=== PATIENT | female | born 1985 | race Caucasian/White ===

== ENCOUNTER → 2022-05-16 06:55 | Outpatient (CLI) | payer OTHER, SELFPAY ==
[2022-05-16 08:05] LABS: Add Manual Diff / Slide Review NO; Basophils Absolute Auto 100 /uL (0-100); Basophils Percent Auto 0.6 % (0-2); Eosinophils Absolute Auto 100 /uL (0-450); Eosinophils Percent Auto 0.9 % (2-4); Lymphocytes Absolute Auto 3400 /uL (1100-4500); Lymphocytes Percent Auto 33.3 % (25-40); Mean Corpuscular HGB Conc 33.4 % (30-36); Mean Corpuscular Hemoglobin 30.1 PG (26-34); Mean Corpuscular Volume 90.1 fL (80-100); Monocytes Absolute Auto 600 /uL (0-900); Monocytes Percent Auto 6.3 % (3-14); Neutrophils Absolute Auto 6100 /uL (1500-7000); Neutrophils Percent Auto 58.9 % (50-75); Platelet Count 327 X10^3/uL (150-400); Red Blood Cell Count 4.66 X10^6/uL (4.0-5.2); Red Cell Distribution Width 12.8 % (11.6-14.8); White Blood Cell Count 10.3 X10^3/uL (4.5-11.0)
[2022-05-16 08:16] LABS: Alanine Aminotransferase 48 IU/L (<35); Albumin 4.4 g/dL (3.5-5.0); Albumin Globulin Ratio 1.2 (1.0-2.8); Alkaline Phosphatase 69 U/L (38-126); Aspartate Aminotransferase 32 IU/L (14-36); BUN Creatinine Ratio 21.3 (6-22); Bilirubin Total 0.3 mg/dL (0.2-1.3); Blood Urea Nitrogen 13 mg/dL (7-17); Carbon Dioxide 27 mmol/L (22-32); Chloride 103 mmol/L (98-107); Cholesterol 170 mg/dL (140-199); Estimated Glomerular Filt Rate > 60 mL/min (>60); Globulin 3.7 g/dL (1.7-4.1); Glucose 96 mg/dL (70-100); HDL Cholesterol 38 mg/dL (40-60); HEMOLYSIS < 15 (0-50); LDL Cholesterol Calculated 106 mg/dL (<100); Potassium 3.8 mmol/L (3.4-5.1); Sodium 141 mmol/L (137-145); Total Protein 8.1 g/dL (6.3-8.2); Triglycerides 131 mg/dL (35-150)
[2022-05-17 06:04] LABS: Labcorp Hemoglobin (Hb) A1c 5.3 % (4.8-5.6)
[2022-05-29 16:44] LABS: Percent Free Testosterone 1.47 % (0.50-2.80); Testosterone Free 0.76 ng/dL (0.10-0.85)
== END ==
PROVIDERS: PCP Family Medicine; Referring Provider Family Medicine; Visit Provider Family Medicine
DX: E28.2 Polycystic ovarian syndrome (principal); N91.2 Amenorrhea, unspecified; R41.840 Attention and concentration deficit; Z68.30 Body mass index [BMI] 30.0-30.9, adult
CPT/HCPCS: 36415; 80053; 80061; 83036; 83498; 84402; 84403; 84443; 85025

== ENCOUNTER → 2022-08-05 07:02 | Outpatient (CLI) | payer OTHER, SELFPAY ==
[2022-08-05 09:46] LABS: Free T3, Triiodothyronine Free 4.86 pg/mL (2.77-5.27); Free T4, Direct Thyroxine 1.01 ng/dL (0.78-2.19)
[2022-08-06 07:10] LABS: Thyroid Peroxidase Antibodies 10 IU/mL (0-34)
== END ==
PROVIDERS: Specialist; PCP Family Medicine; Referring Provider Naturopath; Visit Provider Naturopath
DX: R53.82 Chronic fatigue, unspecified (principal); N91.4 Secondary oligomenorrhea
CPT/HCPCS: 36415; 84144; 84439; 84443; 84481; 86376

== ENCOUNTER → 2023-07-02 06:58 | Outpatient (CLI) | payer OTHER, SELFPAY ==
[2023-07-02 08:31] LABS: Add Manual Diff / Slide Review NO; Basophils Absolute Auto 100 /uL (0-100); Basophils Percent Auto 0.7 % (0-2); Eosinophils Absolute Auto 100 /uL (0-450); Eosinophils Percent Auto 1.1 % (2-4); Hematocrit 43.9 % (36-46); Hemoglobin 14.8 g/dL (12.0-16.0); Lymphocytes Absolute Auto 3700 /uL (1100-4500); Lymphocytes Percent Auto 35.4 % (25-40); Mean Corpuscular HGB Conc 33.8 % (30-36); Mean Corpuscular Hemoglobin 30.9 PG (26-34); Mean Corpuscular Volume 91.7 fL (80-100); Monocytes Absolute Auto 600 /uL (0-900); Monocytes Percent Auto 6.1 % (3-14); Neutrophils Absolute Auto 6000 /uL (1500-7000); Neutrophils Percent Auto 56.7 % (50-75); Platelet Count 311 X10^3/uL (150-400); Red Blood Cell Count 4.79 X10^6/uL (4.0-5.2); Red Cell Distribution Width 12.9 % (11.6-14.8); White Blood Cell Count 10.6 X10^3/uL (4.5-11.0)
[2023-07-02 08:50] LABS: Alanine Aminotransferase 38 IU/L (<35); Albumin 4.8 g/dL (3.5-5.0); Albumin Globulin Ratio 1.5 (1.0-2.8); Alkaline Phosphatase 76 U/L (38-126); Aspartate Aminotransferase 30 IU/L (14-36); BUN Creatinine Ratio 17.4 (6-22); Bilirubin Total 0.8 mg/dL (0.2-1.3); Blood Urea Nitrogen 12 mg/dL (7-17); Calcium 9.7 mg/dL (8.4-10.2); Carbon Dioxide 29 mmol/L (22-32); Chloride 105 mmol/L (98-107); Estimated Glomerular Filt Rate > 60 mL/min (>60); Globulin 3.1 g/dL (1.7-4.1); Glucose 87 mg/dL (70-100); HEMOLYSIS < 15 (0-50); Potassium 4.9 mmol/L (3.4-5.1); Sodium 142 mmol/L (137-145); Total Protein 7.9 g/dL (6.3-8.2)
[2023-07-02 09:08] LABS: TSH w/ Reflex to FT4 1.12 uIU/mL (0.47-4.68)
[2023-07-02 09:27] LABS: Vitamin D 25 Hydroxy (D3) 21.9 ng/mL (30.0-100.0)
[2023-07-03 13:11] LABS: Interpretation Negative (Negative)
[2023-07-03 19:47] LABS: Deamidated Gliadin Ab IgA 53 units (0-19); Deamidated Gliadin Ab IgG 13 units (0-19); Immunoglobulin A,Qn 477 mg/dL (87-352); t-Transglutaminase IgA <2 U/mL (0-3)
== END ==
PROVIDERS: PCP Family Medicine; Referring Provider Family Medicine; Visit Provider Family Medicine
DX: F98.8 Other specified behavioral and emotional disorders with onset usually occurring in childhood and adolescence (principal); G47.00 Insomnia, unspecified; R14.0 Abdominal distension (gaseous); R53.83 Other fatigue; E28.2 Polycystic ovarian syndrome
CPT/HCPCS: 36415; 80053; 82306; 82784; 83013; 83036; 83516; 84443; 85025

== ENCOUNTER 2023-10-18 06:44 | Emergency (ER) | payer OTHER, SELFPAY ==
[2023-10-18] VITALS (8 sets, daily range): BP systolic 92–113; BP diastolic 56–82; PULSE 54–78; RESP 18; TEMP 36.3; O2SAT 99–100; BMI 27.1
--- NOTE | 2023-10-18 07:11 | ED_ITS ---
HPI - Abdominal Pain General Chief Complaint: Abdominal Pain Stated Complaint: ABD PAIN Time Seen by Provider: 10/18/23 07:05 Source: patient and EMS Mode of arrival: EMS History of Present Illness HPI narrative: 38-year-old female with history of celiac disease by antibody testing, ongoing abdominal discomfort problems, awaiting GI consultation to be scheduled, no prior upper endoscopy, now with upper middle epigastric area discomfort acute onset 330 this morning, retching and nonbloody emesis, no black or red color. No loose stools, no black or red stools. No dysuria frequency of urination. No flank pain. No mid upper lower back pain. No vaginal bleeding. No injury trauma new activities. Related Data Previous Rx's Medication Instructions Recorded dextroamphetamine-amphetamine ER 20 mg PO DAILY #30 caps 10/07/23 20 mg 24hr capsule,extend release (Adderall XR) Allergies Allergy/AdvReac Type Severity Reaction Status Date / Time No Known Drug Allergies Allergy Verified 10/14/23 16:07 Review of Systems Review of Systems Narrative: see HPI Patient History Medical History (Updated 10/18/23 @ 08:51 by Nasim Pemberton MD) Attention deficit disorder Insomnia Fatigue Chronic UTI Dysthymia Tension type headache, unspecified Dysphagia Surgical History (Updated 06/10/17 @ 06:04 by Conversion Provider) History of third molar tooth extraction Family History (Updated 05/26/15 @ 00:00 by Conversion Provider) Grandmother Age: 81 Flanagan's palsy Stroke Mother Age: 55 Hypothyroidism Sister Age: 37 Anxiety Depression Social History Smoking Status: Current every day smoker second hand exposure: No alcohol intake: current (rarely, wine) substance use type: does not use Smoking Status: Current every day smoker tobacco type: cigarettes alcohol intake frequency: 0-2 drinks per day Substance Use Type: does not use Exam Narrative Exam Narrative: GENERAL: Well-developed patient, in mild distress. HEAD: Atraumatic. Normocephalic. EYES: Pupils equal round and reactive. Extraocular motions intact. No scleral icterus. No injection or drainage. ENT: Nose without bleeding, purulent drainage. Throat without erythema, tonsillar hypertrophy or exudate. Airway patent. NECK: Trachea midline. Non tender CARDIOVASCULAR: Regular rate and rhythm without murmurs, gallops, or rubs. RESPIRATORY: Clear to auscultation. Breath sounds equal bilaterally. No wheezes, rales, or rhonchi. GASTROINTESTINAL: Abdomen soft, non-tender, nondistended. EXTREMITIES: No edema or joint tenderness. BACK: Nontender without deformity or crepitance. No flank tenderness. NEURO: AOx3. Motor functions grossly nonfocal SKIN: No rash or erythema of visible areas Initial Vital Signs Initial Vital Signs: Vital Signs Temperature 97.3 F L 10/18/23 06:57 Pulse Rate 72 10/18/23 06:57 Respiratory Rate 18 10/18/23 06:57 Blood Pressure 108/72 10/18/23 06:57 Pulse Oximetry 100 10/18/23 06:57 Oxygen Delivery Method Room Air 10/18/23 06:57 Course Orders Ordered: Discontinued Medications Dicyclomine HCl (Dicyclomine 10 Mg Capsule) 20 mg PO NOW ONE Stop: 10/18/23 08:42 Last Admin: 10/18/23 09:05 Dose: Not Given Documented By: ANDREW Hydromorphone HCl (Hydromorphone 0.5 Mg Inj) 0.5 mg IV NOW ONE Stop: 10/18/23 07:24 Last Admin: 10/18/23 07:36 Dose: 0.5 mg Documented By: JOSE E Sodium Chloride (Normal Saline 0.9%) 1,000 mls @ 1,000 mls/hr IV BOLUS ONE Stop: 10/18/23 09:15 Last Infusion: 10/18/23 09:25 Dose: Infused Documented By: Infusion: 10/18/23 09:10 Dose: 999 mls/hr Documented By: JOSE E Admin: 10/18/23 08:17 Dose: 1,000 mls/hr Documented By: JOSE E Ketorolac Tromethamine (Ketorolac 30 Mg/Ml Vial) 15 mg IV NOW ONE Stop: 10/18/23 07:15 Last Admin: 10/18/23 07:21 Dose: 15 mg Documented By: JOSE E Pantoprazole Sodium (Pantoprazole 40 Mg Vial) 40 mg IV NOW ONE Stop: 10/18/23 07:21 Last Admin: 10/18/23 07:36 Dose: 40 mg Documented By: JOSE E Vital Signs Vital signs: Vital Signs - 8 hr 10/18/23 06:57 10/18/23 06:57 10/18/23 07:00 Temperature 97.3 F L Pulse Rate 72 59 L 62 Respiratory Rate 18 Blood Pressure 108/72 Pulse Oximetry 100 100 100 Oxygen Delivery Method Room Air 10/18/23 07:09 10/18/23 07:09 10/18/23 07:30 Temperature Pulse Rate 62 Respiratory Rate Blood Pressure 109/82 104/67 Pulse Oximetry 100 Oxygen Delivery Method Room Air 10/18/23 07:30 10/18/23 08:00 10/18/23 08:00 Temperature Pulse Rate 58 L 54 L Respiratory Rate Blood Pressure 92/56 L Pulse Oximetry 100 100 Oxygen Delivery Method Room Air MDM - Abdominal Pain Lab Data Attestation: I reviewed the patient's lab results. 10/18/23 06:50 10/18/23 06:50 Labs: Lab Results 10/18/23 Range/Units 06:50 WBC 12.3 H (4.5-11.0) X10^3/uL RBC 4.61 (4.0-5.2) X10^6/uL Hgb 13.9 (12.0-16.0) g/dL Hct 41.8 (36-46) % MCV 90.6 (80-100) fL MCH 30.1 (26-34) PG MCHC 33.2 (30-36) % RDW 13.7 (11.6-14.8) % Plt Count 347 (150-400) X10^3/uL Neut % (Auto) 73.4 (50-75) % Lymph % (Auto) 20.5 L (25-40) % [place] % (Auto) 5.0 (3-14) % Eos % (Auto) 0.5 L (2-4) % Baso % (Auto) 0.6 (0-2) % Neut # (Auto) 9100 H (0608-5318) /uL Lymph # (Auto) 2500 (6387-2114) /uL [place] # (Auto) 600 (0-900) /uL Eos # (Auto) 100 (0-450) /uL Baso # (Auto) 100 (0-100) /uL Sodium 139 (137-145) mmol/L Potassium 3.7 (3.4-5.1) mmol/L Chloride 105 (98-107) mmol/L Carbon Dioxide 25 (22-32) mmol/L BUN 5 L (7-17) mg/dL Creatinine 0.62 (0.52-1.04) mg/dL Estimated GFR > 60 (>60) mL/min BUN/Creatinine Ratio 8.1 (6-22) Glucose 154 H (70-100) mg/dL Calcium 9.4 (8.4-10.2) mg/dL Total Bilirubin 0.4 (0.2-1.3) mg/dL AST 30 (14-36) IU/L ALT 25 (<35) IU/L Alkaline Phosphatase 76 (38-126) U/L Total Protein 8.0 (6.3-8.2) g/dL Albumin 4.6 (3.5-5.0) g/dL Globulin 3.4 (1.7-4.1) g/dL Albumin/Globulin Ratio 1.4 (1.0-2.8) Lipase 231 (23-300) U/L HCG, Quant < 2.39 mIU/mL Imaging Data CT scan - abdomen/pelvis: Radiologist's Impression: [address] [address] [address] Scan Report Signed Patient: Eli Jay MR#: [id number] : 1985 Acct:[id number] Age/Sex: 38 / F Date of Service: 10/18/23 Loc: ED Accession Number: [id number] Procedure: CT abdomen pelvis w con Ordering Provider: Nasim Pemberton MD PROCEDURE: CT ABDOMEN PELVIS W CON INDICATIONS: Abdominal pain, vomiting TECHNIQUE: After the administration of intravenous contrast, axial sections acquired from the lung bases to the pubic symphysis. Coronal and sagittal reformats were performed. For radiation dose reduction, the following was used: automated exposure control, adjustment of mA and/or kV according to patient size. COMPARISON: US, PELVIC COMPLETE, 08/25/2012, 11:37. FINDINGS: Image quality: Diagnostic. Lower Chest: No significant findings. ABDOMEN: Liver: No solid mass. Gallbladder: No radiopaque gallstones or wall thickening. Biliary ducts: No biliary dilation. Pancreas: No ductal dilation. Spleen: Size is within normal limits. Adrenal Glands: No adrenal nodules. Kidneys and Ureters: No hydronephrosis. No solid mass. No complex renal cystic lesion which requires follow up. Stomach and Bowel: Normal colonic caliber, without significant wall thickening. Fluid-filled small bowel loops. Peritoneum: No abnormal intraperitoneal fluid. No free air. Ventral Wall: No significant ventral hernia. Abdominal Nodes: No retroperitoneal or mesenteric adenopathy by size criteria. Vessels: Aorta and inferior vena cava are normal in size. PELVIS: Pelvic Organs: Unremarkable. Bladder: No bladder wall thickening, accounting for underdistention. Pelvic Nodes: No enlarged lymph nodes. Miscellaneous: No inguinal hernias are seen. Bones: No aggressive osseous abnormality. IMPRESSION: Fluid-filled small bowel loops in overall nonspecific pattern. This may be related to enteritis/ileus. Dictated by: Candy Nguyen M.D. on 10/18/2023 at 8:32 Approved by: Candy Nguyen M.D. on 10/18/2023 at 8:34 MDM Narrative Medical decision making narrative: 38-year-old female with prior episodes of upper abdominal discomfort, no prior upper endoscopies, with nonbloody emesis and upper abdominal discomfort. Afebrile, sirs screen negative. Epigastric discomfort without guarding or rebound tenderness, mild diffuse tenderness mostly in epigastrium. White blood cell count 30995, hCG negative. CMP unremarkable. 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 IV Toradol, IV Dilaudid/Zofran. CT abdomen and pelvis ordered. CT abdomen and pelvis shows enteritis like changes, no perforation, no obstruction, no abscess. See radiology report. Oral dicyclomine dose declined, had taken this in the past without help Symptoms improved, took oral fluids, home with family, discharged home, further testing and evaluation as outpatient, return precautions discussed Discharge Plan Departure Patient Disposition: Home Clinical Impression: Abdominal pain, Enteritis, History of celiac disease Activity Restrictions/Additional Instructions: History of celiac sprue, also taking Nexium antacids, awaiting GI consultation. Now with increased abdominal cramping and upper abdominal discomfort more than diffuse abdominal discomfort. test negative. White blood cell count mildly elevated. CT scan abdomen and pelvis showed enteritis like changes. This is usually viral in etiology. Does not require antibiotics, usually self- limited. This could be some early other process. However at this time imaging did not show any perforation, obstruction, abscess formation changes. Follow up with your sole blacker for longitudinal symptom as planned. Continue taking your chronic medications. Consider Tylenol as needed for discomfort symptoms. Follow up with your GI specialist. Regarding this acute illness consider recheck with your regular doctor on Friday or Friday if symptoms still persist. Return to this/nearest emergency department for any change worsening symptoms or any concerns prior Prescriptions: No Action dextroamphetamine-amphetamine [Adderall XR] 20 mg capsule,extended release 24hr 20 mg PO DAILY Qty: 30 0RF Referrals: Sunil Gibbons MD [Primary Care Provider] - Stand Alone Forms: Patient Portal/API
--- NOTE | 2023-10-18 07:14 | PC.NURSE ---
Patient rolling around in bed in room and crying asking for pain meds. At this time I spoke with Dr. Pemberton and received verbal order for 15mg IV toradol.
[2023-10-18 07:19] LABS: Add Manual Diff / Slide Review NO; Basophils Absolute Auto 100 /uL (0-100); Basophils Percent Auto 0.6 % (0-2); Eosinophils Absolute Auto 100 /uL (0-450); Eosinophils Percent Auto 0.5 % (2-4); Hematocrit 41.8 % (36-46); Hemoglobin 13.9 g/dL (12.0-16.0); Lymphocytes Absolute Auto 2500 /uL (1100-4500); Lymphocytes Percent Auto 20.5 % (25-40); Mean Corpuscular HGB Conc 33.2 % (30-36); Mean Corpuscular Hemoglobin 30.1 PG (26-34); Mean Corpuscular Volume 90.6 fL (80-100); Monocytes Absolute Auto 600 /uL (0-900); Neutrophils Absolute Auto 9100 /uL (1500-7000); Neutrophils Percent Auto 73.4 % (50-75); Platelet Count 347 X10^3/uL (150-400); Red Blood Cell Count 4.61 X10^6/uL (4.0-5.2); Red Cell Distribution Width 13.7 % (11.6-14.8); White Blood Cell Count 12.3 X10^3/uL (4.5-11.0)
[2023-10-18] MEDS: KETOROLAC 30 MG/ML VIAL 15 MG IV (07:21)
[2023-10-18 07:27] LABS: Alanine Aminotransferase 25 IU/L (<35); Albumin 4.6 g/dL (3.5-5.0); Albumin Globulin Ratio 1.4 (1.0-2.8); Alkaline Phosphatase 76 U/L (38-126); Aspartate Aminotransferase 30 IU/L (14-36); BUN Creatinine Ratio 8.1 (6-22); Bilirubin Total 0.4 mg/dL (0.2-1.3); Blood Urea Nitrogen 5 mg/dL (7-17); Calcium 9.4 mg/dL (8.4-10.2); Carbon Dioxide 25 mmol/L (22-32); Chloride 105 mmol/L (98-107); Estimated Glomerular Filt Rate > 60 mL/min (>60); Globulin 3.4 g/dL (1.7-4.1); Glucose 154 mg/dL (70-100); HEMOLYSIS < 15 (0-50); Lipase 231 U/L (23-300); Potassium 3.7 mmol/L (3.4-5.1); Sodium 139 mmol/L (137-145)
[2023-10-18] MEDS: PANTOPRAZOLE 40 MG VIAL IV (07:36)
[2023-10-18] MEDS: HYDROMORPHONE 0.5 MG INJ IV (07:36)
[2023-10-18 07:53] LABS: HCG Quantitative /Beta subunit < 2.39 mIU/mL
--- NOTE | 2023-10-18 08:03 | DI.CT.S_ITS ---
PROCEDURE: CT ABDOMEN PELVIS W CON INDICATIONS: Abdominal pain, vomiting TECHNIQUE: After the administration of intravenous contrast, axial sections acquired from the lung bases to the pubic symphysis. Coronal and sagittal reformats were performed. For radiation dose reduction, the following was used: automated exposure control, adjustment of mA and/or kV according to patient size. COMPARISON: US, PELVIC COMPLETE, 08/25/2012, 11:37. FINDINGS: Image quality: Diagnostic. Lower Chest: No significant findings. ABDOMEN: Liver: No solid mass. Gallbladder: No radiopaque gallstones or wall thickening. Biliary ducts: No biliary dilation. Pancreas: No ductal dilation. Spleen: Size is within normal limits. Adrenal Glands: No adrenal nodules. Kidneys and Ureters: No hydronephrosis. No solid mass. No complex renal cystic lesion which requires follow up. Stomach and Bowel: Normal colonic caliber, without significant wall thickening. Fluid-filled small bowel loops. Peritoneum: No abnormal intraperitoneal fluid. No free air. Ventral Wall: No significant ventral hernia. Abdominal Nodes: No retroperitoneal or mesenteric adenopathy by size criteria. Vessels: Aorta and inferior vena cava are normal in size. PELVIS: Pelvic Organs: Unremarkable. Bladder: No bladder wall thickening, accounting for underdistention. Pelvic Nodes: No enlarged lymph nodes. Miscellaneous: No inguinal hernias are seen. Bones: No aggressive osseous abnormality. IMPRESSION: Fluid-filled small bowel loops in overall nonspecific pattern. This may be related to enteritis/ileus. Dictated by: Candy Nguyen M.D. on 10/18/2023 at 8:32 Approved by: Candy Nguyen M.D. on 10/18/2023 at 8:34
[2023-10-18] MEDS: SODIUM CHLORIDE 0.9% 1,000 ML 1000 ML IV (08:17)
== END 2023-10-18 09:39 | disposition home or self-care (01) ==
PROVIDERS: Emergency Medicine; Emergency Provider Emergency Medicine; PCP Family Medicine
DX: K52.9 Noninfective gastroenteritis and colitis, unspecified (principal); R10.13 Epigastric pain; K90.0 Celiac disease
CPT/HCPCS: 36415; 74177; 80053; 83690; 84702; 85025; 96361; 96374; 96375; 99284; J1170; J1885; J2470; Q9967

== ENCOUNTER 2023-11-16 02:09 | Emergency (ER) | payer OTHER, SELFPAY ==
[2023-11-16 02:10] VITALS: BP 128/68; PULSE 61; RESP 18; TEMP 36.9; O2SAT 99; BMI 26.2
[2023-11-16 02:13] VITALS: PULSE 63; O2SAT 99
[2023-11-16 02:14] VITALS: BP 128/68; PULSE 63; O2SAT 98
--- NOTE | 2023-11-16 02:18 | DI.US.S_ITS ---
PROCEDURE: US ABDOMEN LIMITED INDICATIONS: RUQ pain eval for GB pathology TECHNIQUE: Real-time focused scanning was performed of the abdomen, with image documentation. COMPARISON: None. FINDINGS: Liver measures 17 cm. Cholelithiasis without sonographic Stanton sign. No significant wall thickening. CBD measures 7 mm. Unremarkable pancreas where visualized. IMPRESSION: Distended gallbladder without sonographic Stanton sign. Gallstones are present. Consider nuclear medicine HIDA study to further evaluate if necessary. Agree with prelim report. Dictated by: Noble De La Cruz M.D. on 11/16/2023 at 9:37 Approved by: Noble De La Cruz M.D. on 11/16/2023 at 9:38
[2023-11-16] MEDS: KETOROLAC 30 MG/ML VIAL 15 MG IV (02:26)
--- NOTE | 2023-11-16 02:26 | ED_ITS ---
HPI - General Adult General Chief complaint: Abdominal Pain Stated complaint: abd pain Time Seen by Provider: 11/16/23 02:10 Source: patient Mode of arrival: EMS Limitations: no limitations History of Present Illness HPI narrative: 38-year-old female who arrives by EMS for evaluation of epigastric abdominal discomfort. She has had pain like this in the past. She was seen here in this emergency department approximately 1 month ago for similar pain. And labs that were unremarkable. CT scan that was unremarkable. Since that time has had follow-up with GI. Has had an upper endoscopy was told that she did not have gastritis or reflux disease. She was scheduled to have a HIDA scan performed on Friday however she developed COVID so this had to be rescheduled for 2 weeks from then. She states she was trying to change her diet. Last evening had a onset of the discomfort that was unrelenting. Has not taken anything for the discomfort prior to arrival. No change in bowel habits. No urinary symptoms. Is having some nausea and vomiting. Related Data Previous Rx's Medication Instructions Recorded dextroamphetamine-amphetamine ER 20 mg PO DAILY #30 caps 10/07/23 20 mg 24hr capsule,extend release (Adderall XR) hydrocodone 5 mg-acetaminophen 325 1 tab PO Q6H PRN pain #10 tabs 11/16/23 mg tablet ondansetron 4 mg disintegrating 4 mg PO Q6H PRN nausea and 11/16/23 tablet vomiting #14 tabs Allergies Allergy/AdvReac Type Severity Reaction Status Date / Time No Known Drug Allergies Allergy Verified 10/14/23 16:07 Review of Systems Review of Systems Narrative: See HPI Patient History Medical History Attention deficit disorder Insomnia Fatigue Chronic UTI Dysthymia Tension type headache, unspecified Dysphagia Surgical History (Updated 06/10/17 @ 06:04 by Conversion Provider) History of third molar tooth extraction Family History (Updated 05/26/15 @ 00:00 by Conversion Provider) Grandmother Age: 81 Flanagan's palsy Stroke Mother Age: 55 Hypothyroidism Sister Age: 37 Anxiety Depression Social History Smoking Status: Current every day smoker second hand exposure: No alcohol intake: current (rarely, wine) substance use type: does not use Smoking Status: Current every day smoker tobacco type: cigarettes alcohol intake frequency: holidays/special occasions only Substance Use Type: does not use Exam Initial Vital Signs Initial Vital Signs: Vital Signs Temperature 98.5 F 11/16/23 02:10 Pulse Rate 61 11/16/23 02:10 Respiratory Rate 18 11/16/23 02:10 Blood Pressure 128/68 11/16/23 02:10 Pulse Oximetry 99 11/16/23 02:10 Oxygen Delivery Method Room Air 11/16/23 02:10 Const General: cooperative and No ill appearing HENMT Head: normal to inspection and normocephalic Resp Effort & Inspection: normal respiratory effort Auscultation: clear to auscultation bilaterally Cardio Rate: regular rate Rhythm: regular rhythm GI Inspection: non-distended Palpation: soft, No firm, No guarding and tender Neuro General: patient alert, patient awake and moves all extremities Extrem General: capillary refill normal Course Orders Ordered: ED Orders 11/16/23 02:15 Complete Blood Count AUTO DIFF Stat Comprehensive Metabolic Panel Stat Lipase Stat Test Serum,Qual Stat 11/16/23 02:18 US abdomen limited Stat 11/16/23 03:06 Consult to General Surgery Stat Discontinued Medications Ketorolac Tromethamine (Ketorolac 30 Mg/Ml Vial) 15 mg IV NOW ONE Stop: 11/16/23 02:22 Last Admin: 11/16/23 02:26 Dose: 15 mg Documented By: Ondansetron HCl (Ondansetron 4 Mg/2 Ml Inj) 4 mg IV NOW ONE Stop: 11/16/23 02:38 Last Admin: 11/16/23 02:40 Dose: 4 mg Documented By: Vital Signs Vital signs: Vital Signs - 8 hr 11/16/23 02:10 Temperature 98.5 F Pulse Rate 61 Respiratory Rate 18 Blood Pressure 128/68 Pulse Oximetry 99 Oxygen Delivery Method Room Air Medical Decision Making Medical Records Medical records reviewed: Yes I reviewed the patient's medical records. Lab Data Lab results reviewed: Yes I reviewed the patient's lab results. 11/16/23 02:15 11/16/23 02:15 Labs: Lab Results 11/16/23 Range/Units 02:15 WBC 13.3 H (4.5-11.0) X10^3/uL RBC 4.54 (4.0-5.2) X10^6/uL Hgb 13.9 (12.0-16.0) g/dL Hct 41.8 (36-46) % MCV 92.0 (80-100) fL MCH 30.6 (26-34) PG MCHC 33.3 (30-36) % RDW 13.3 (11.6-14.8) % Plt Count 333 (150-400) X10^3/uL Neut % (Auto) 67.6 (50-75) % Lymph % (Auto) 23.3 L (25-40) % [place] % (Auto) 7.5 (3-14) % Eos % (Auto) 0.7 L (2-4) % Baso % (Auto) 0.9 (0-2) % Neut # (Auto) 9000 H (2208-2771) /uL Lymph # (Auto) 3100 (4497-8988) /uL [place] # (Auto) 1000 H (0-900) /uL Eos # (Auto) 100 (0-450) /uL Baso # (Auto) 100 (0-100) /uL Sodium 138 (137-145) mmol/L Potassium 4.8 (3.4-5.1) mmol/L Chloride 104 (98-107) mmol/L Carbon Dioxide 23 (22-32) mmol/L BUN 14 (7-17) mg/dL Creatinine 0.61 (0.52-1.04) mg/dL Estimated GFR > 60 (>60) mL/min BUN/Creatinine Ratio 23.0 H (6-22) Glucose 136 H (70-100) mg/dL Calcium 9.3 (8.4-10.2) mg/dL Total Bilirubin 0.6 (0.2-1.3) mg/dL AST 41 H (14-36) IU/L ALT 54 H (<35) IU/L Alkaline Phosphatase 88 (38-126) U/L Total Protein 8.1 (6.3-8.2) g/dL Albumin 4.4 (3.5-5.0) g/dL Globulin 3.7 (1.7-4.1) g/dL Albumin/Globulin Ratio 1.2 (1.0-2.8) Lipase 185 (23-300) U/L Serum , Qual Negative (Negative) Imaging Data US - abdomen: Radiologist's Impression: Distended gallbladder containing tiny stones and mild to moderate sludge. There was no sonographic Stanton's sign. Common bile duct 6.6 mm in diameter MDM Narrative Medical decision making narrative: Patient does have a slight elevation in her LFTs but bilirubin is normal. Lipase is normal. She does have a leukocytosis without a left shift. She does not have a sonographic Stanton's sign. Does not have a Stanton's sign on my physical exam. After Toradol she reports an improvement of her symptoms. Not completely gone but feels better. I did discuss the case with Dr. Sage on- call for General surgery who recommended that patient be sent home with pain medication. She did recommend a HIDA scan. She recommended that the patient follow-up with general surgery in clinic next week. I did discuss all this with the patient. She was given contact information for Dr. Sage. Will send home with nausea and pain medicine. She was given strict return precautions. She expressed understanding and agreement. Discharge Plan Departure Patient Disposition: Home Clinical Impression: Cholelithiasis, Abdominal pain Instructions: DI for Gallstones Activity Restrictions/Additional Instructions: I do recommend that you continue with the plan obtaining the HIDA scan. You can also contact the General surgery Department of the number provided below on Friday for follow-up with Dr. Sage. Use the pain and nausea medication as needed. Return to the emergency department for new symptoms. Prescriptions: New ondansetron 4 mg tablet,disintegrating 4 mg PO Q6H PRN (Reason: nausea and vomiting) Qty: 14 0RF hydrocodone-acetaminophen 5-325 mg tablet 1 tab PO Q6H PRN (Reason: pain) Qty: 10 0RF No Action dextroamphetamine-amphetamine [Adderall XR] 20 mg capsule,extended release 24hr 20 mg PO DAILY Qty: 30 0RF Referrals: Erin Sage MD [Physician] - Sunil Gibbons MD [Primary Care Provider] - Stand Alone Forms: Patient Portal/API
[2023-11-16 02:30] VITALS: PULSE 62; O2SAT 100
[2023-11-16] MEDS: ONDANSETRON 4 MG/2 ML INJ IV (02:40)
[2023-11-16 02:43] LABS: Add Manual Diff / Slide Review NO; Basophils Absolute Auto 100 /uL (0-100); Basophils Percent Auto 0.9 % (0-2); Eosinophils Absolute Auto 100 /uL (0-450); Eosinophils Percent Auto 0.7 % (2-4); Hematocrit 41.8 % (36-46); Hemoglobin 13.9 g/dL (12.0-16.0); Lymphocytes Absolute Auto 3100 /uL (1100-4500); Lymphocytes Percent Auto 23.3 % (25-40); Mean Corpuscular HGB Conc 33.3 % (30-36); Mean Corpuscular Hemoglobin 30.6 PG (26-34); Monocytes Absolute Auto 1000 /uL (0-900); Monocytes Percent Auto 7.5 % (3-14); Neutrophils Absolute Auto 9000 /uL (1500-7000); Neutrophils Percent Auto 67.6 % (50-75); Platelet Count 333 X10^3/uL (150-400); Red Blood Cell Count 4.54 X10^6/uL (4.0-5.2); Red Cell Distribution Width 13.3 % (11.6-14.8); White Blood Cell Count 13.3 X10^3/uL (4.5-11.0)
[2023-11-16 02:51] LABS: Alanine Aminotransferase 54 IU/L (<35); Albumin 4.4 g/dL (3.5-5.0); Albumin Globulin Ratio 1.2 (1.0-2.8); Alkaline Phosphatase 88 U/L (38-126); Aspartate Aminotransferase 41 IU/L (14-36); Bilirubin Total 0.6 mg/dL (0.2-1.3); Blood Urea Nitrogen 14 mg/dL (7-17); Calcium 9.3 mg/dL (8.4-10.2); Carbon Dioxide 23 mmol/L (22-32); Chloride 104 mmol/L (98-107); Estimated Glomerular Filt Rate > 60 mL/min (>60); Globulin 3.7 g/dL (1.7-4.1); Glucose 136 mg/dL (70-100); Lipase 185 U/L (23-300); Potassium 4.8 mmol/L (3.4-5.1); Sodium 138 mmol/L (137-145); Total Protein 8.1 g/dL (6.3-8.2)
[2023-11-16 02:54] LABS: HEMOLYSIS 142 (0-50)
[2023-11-16 03:00] VITALS: PULSE 65; O2SAT 100
[2023-11-16 03:12] LABS: Pregnancy Test Serum,Qual Negative (Negative)
[2023-11-16 03:30] VITALS: PULSE 66; O2SAT 99
[2023-11-16] MEDS: HYDROCODONE/ACET 5/325 TABLET 1 TAB PO (03:31)
[2023-11-16] MEDS: HYDROCODONE/ACET 5/325 PREPACK 1 BOTTLE MISC (03:31)
[2023-11-16] MEDS: ONDANSETRON 4 MG ODT PREPACK 1 BOTTLE MISC (03:31)
== END 2023-11-16 03:40 | disposition home or self-care (01) ==
PROVIDERS: Emergency Provider Emergency Medicine; PCP Family Medicine
DX: K80.20 Calculus of gallbladder without cholecystitis without obstruction (principal); R10.13 Epigastric pain
CPT/HCPCS: 36415; 76705; 80053; 83690; 84703; 85025; 96374; 96375; 99284; J1885; J2405

== ENCOUNTER 2023-11-23 17:51 | Emergency (ER) | payer OTHER, SELFPAY ==
[2023-11-23] VITALS (19 sets, daily range): BP systolic 93–111; BP diastolic 53–72; PULSE 53–84; RESP 14–24; TEMP 36.7; O2SAT 96–100; BMI 26.6
[2023-11-23 18:29] LABS: Add Manual Diff / Slide Review NO; Basophils Absolute Auto 0 /uL (0-100); Basophils Percent Auto 0.3 % (0-2); Eosinophils Absolute Auto 100 /uL (0-450); Eosinophils Percent Auto 0.4 % (2-4); Hematocrit 42.1 % (36-46); Lymphocytes Absolute Auto 2300 /uL (1100-4500); Lymphocytes Percent Auto 15.5 % (25-40); Mean Corpuscular HGB Conc 33.2 % (30-36); Mean Corpuscular Hemoglobin 30.8 PG (26-34); Mean Corpuscular Volume 92.7 fL (80-100); Monocytes Absolute Auto 800 /uL (0-900); Monocytes Percent Auto 5.7 % (3-14); Neutrophils Absolute Auto 11400 /uL (1500-7000); Neutrophils Percent Auto 78.1 % (50-75); Platelet Count 360 X10^3/uL (150-400); Red Blood Cell Count 4.54 X10^6/uL (4.0-5.2); Red Cell Distribution Width 13.3 % (11.6-14.8); White Blood Cell Count 14.6 X10^3/uL (4.5-11.0)
[2023-11-23 18:38] LABS: Albumin 4.3 g/dL (3.5-5.0); Albumin Globulin Ratio 1.2 (1.0-2.8); Alkaline Phosphatase 185 U/L (38-126); Aspartate Aminotransferase 633 IU/L (14-36); BUN Creatinine Ratio 8.9 (6-22); Blood Urea Nitrogen 5 mg/dL (7-17); Calcium 9.3 mg/dL (8.4-10.2); Carbon Dioxide 28 mmol/L (22-32); Chloride 101 mmol/L (98-107); Estimated Glomerular Filt Rate > 60 mL/min (>60); Globulin 3.7 g/dL (1.7-4.1); Glucose 99 mg/dL (70-100); HEMOLYSIS 19 (0-50); Lipase 128 U/L (23-300); Potassium 3.9 mmol/L (3.4-5.1); Sodium 137 mmol/L (137-145)
--- NOTE | 2023-11-23 18:39 | PC.NURSE ---
patient has UTI. Started taking them then stopped due to gall bladder issues, then started taking them again.
--- NOTE | 2023-11-23 18:42 | ED_ITS ---
HPI - Abdominal Pain General Chief Complaint: Abdominal Pain Stated Complaint: Painful Breathing, Abd Pain, Jaundice Time Seen by Provider: 11/23/23 18:33 Source: patient Mode of arrival: Ambulatory History of Present Illness HPI narrative: Patient is a 38-year-old female with known gallstones she is actually supposed to surgery scheduled December 01. She initially was here on November 15 diagnosed with cholelithiasis she followed up with surgery on November 18 in his now scheduled. She reports that she has had ongoing pain for the last couple of weeks. She was not getting any better. She has significant aversion to food. She is trying to drink brought and stay hydrated with feels like her mouth is dry. She has persistent right upper quadrant pain. No fever. Today and yesterday her family noted that her skin was getting to be a little bit yellow. She also reports that she has a current UTI she says that she was on antibiotics but maybe take the full course thought she was doing okay and then started having painful frequent urination again recently. She is taking azo [id number] medication which helped with symptoms. She denies any sort of flank pain Related Data Previous Rx's Medication Instructions Recorded dextroamphetamine-amphetamine ER 20 mg PO DAILY #30 caps 10/07/23 20 mg 24hr capsule,extend release (Adderall XR) hydrocodone 5 mg-acetaminophen 325 1 tab PO Q6H PRN pain #10 tabs 11/16/23 mg tablet ondansetron 4 mg disintegrating 4 mg PO Q6H PRN nausea and 11/16/23 tablet vomiting #14 tabs Allergies Allergy/AdvReac Type Severity Reaction Status Date / Time No Known Drug Allergies Allergy Verified 11/19/23 14:51 Patient History Medical History Attention deficit disorder Insomnia Fatigue Chronic UTI Dysthymia Tension type headache, unspecified Dysphagia Surgical History History of third molar tooth extraction Family History Grandmother Age: 81 Flanagan's palsy Stroke Mother Age: 55 Hypothyroidism Sister Age: 37 Anxiety Depression Social History Smoking Status: Former smoker second hand exposure: No alcohol intake: current (rarely, wine) substance use type: does not use Smoking Status: Former smoker tobacco type: cigarettes alcohol intake frequency: holidays/special occasions only Substance Use Type: does not use Exam Initial Vital Signs Initial Vital Signs: Vital Signs Temperature 98.1 F 11/23/23 18:03 Pulse Rate 62 11/23/23 18:03 Respiratory Rate 20 11/23/23 18:03 Blood Pressure 103/67 11/23/23 18:03 Pulse Oximetry 97 11/23/23 18:03 Oxygen Delivery Method Room Air 11/23/23 18:03 GENERAL: Alert 38-year-old female sitting upright in position of comfort and in no acute distress. HEENT: Head atraumatic,EOMI, pupils reactive, face symmetric, moist mucous membranes CARDIOVASCULAR: Regular rate and rhythm without murmurs, rubs or gallops. RESPIRATORY: Breath sounds equal bilaterally, no wheezes rales or rhonchi. ABDOMEN: Soft, tender right upper quadrant positive Stanton sign tender epigastric region rest of abdomen soft nontender EXTREMITIES: Normal range of motion, no clubbing or edema. Neurovascularly intact NEUROLOGICAL: Alert and oriented x4.Normal gait and speech. Cranial nerves II through XII grossly intact. SKIN: Warm, dry, no laceration, no petechiae, no rashes or lesions. Course Orders Ordered: ED Orders 11/24/23 04:00 CBC Auto Diff [Complete Blood Count AUTO DIFF] Stat CMP [Comprehensive Metabolic Panel] Stat Discontinued Medications Piperacillin Sod/Tazobactam (Sod 4.5 gm/ Sodium Chloride) 100 mls @ 200 mls/hr IV NOW ONE Stop: 11/23/23 18:53 Last Infusion: 11/23/23 19:49 Dose: Infused Documented By: Admin: 11/23/23 19:03 Dose: 200 mls/hr Documented By: DUKE Sodium Chloride (Normal Saline 0.9%) 1,000 mls @ 1,000 mls/hr IV BOLUS ONE Stop: 11/23/23 19:51 Last Infusion: 11/23/23 19:48 Dose: Infused Documented By: Admin: 11/23/23 19:03 Dose: 1,000 mls/hr Documented By: DUKE Ceftriaxone Sodium 1,000 mg/ (Sodium Chloride) 100 mls @ 200 mls/hr IV NOW ONE Stop: 11/24/23 00:28 Last Infusion: 11/24/23 01:02 Dose: Infused Documented By: Admin: 11/24/23 00:35 Dose: 200 mls/hr Documented By: ADAM Ketorolac Tromethamine (Ketorolac 30 Mg/Ml Vial) 15 mg IV NOW ONE Stop: 11/23/23 18:54 Last Admin: 11/23/23 19:10 Dose: 15 mg Documented By: DUKE Lorazepam (Lorazepam 2 Mg/Ml Inj) 0.5 mg IV NOW ONE Stop: 11/24/23 00:28 Last Admin: 11/24/23 00:35 Dose: 0.5 mg Documented By: ADAM Ondansetron HCl (Ondansetron 4 Mg/2 Ml Inj) 4 mg IV NOW PRN PRN Reason: Nausea And Vomiting Last Admin: 11/23/23 19:10 Dose: 4 mg Documented By: DUKE Ondansetron HCl (Ondansetron 4 Mg Odt) 4 mg PO NOW PRN PRN Reason: Nausea And Vomiting Phenazopyridine HCl (Phenazopyridine 100 Mg Tablet) 200 mg PO NOW ONE Stop: 11/24/23 00:28 Last Admin: 11/24/23 00:34 Dose: 200 mg Documented By: ADAM Vital Signs Vital signs: Vital Signs - 8 hr 11/23/23 22:30 11/23/23 22:48 11/23/23 22:48 Pulse Rate 62 62 Respiratory Rate 18 14 Blood Pressure 97/66 Pulse Oximetry 96 97 11/23/23 23:00 11/23/23 23:00 11/23/23 23:34 Pulse Rate 65 84 Respiratory Rate 23 18 Blood Pressure 106/66 Pulse Oximetry 100 99 11/23/23 23:34 11/24/23 00:00 11/24/23 00:00 Pulse Rate 64 Respiratory Rate 17 Blood Pressure 104/65 100/69 Pulse Oximetry 99 11/24/23 00:30 11/24/23 01:30 11/24/23 02:00 Pulse Rate 68 65 56 L Respiratory Rate 24 23 19 Blood Pressure Pulse Oximetry 99 97 99 11/24/23 02:30 11/24/23 03:00 11/24/23 03:30 Pulse Rate 56 L 63 60 Respiratory Rate 19 20 17 Blood Pressure Pulse Oximetry 96 97 97 11/24/23 04:00 11/24/23 04:01 11/24/23 04:01 Pulse Rate 69 63 Respiratory Rate 24 22 Blood Pressure 80/52 L Pulse Oximetry 98 98 11/24/23 04:02 11/24/23 04:02 11/24/23 04:30 Pulse Rate 62 57 L Respiratory Rate 21 21 Blood Pressure 90/55 L Pulse Oximetry 98 95 11/24/23 05:00 11/24/23 05:30 11/24/23 06:00 Pulse Rate 60 65 78 Respiratory Rate 20 21 23 Blood Pressure Pulse Oximetry 95 95 96 11/24/23 06:13 Pulse Rate Respiratory Rate Blood Pressure 92/50 L Pulse Oximetry MDM - Abdominal Pain Lab Data 11/24/23 04:00 11/24/23 04:00 Labs: Lab Results 11/23/23 11/23/23 11/24/23 Range/Units 18:19 19:45 04:00 WBC 14.6 H 11.3 H (4.5-11.0) X10^3/uL RBC 4.54 3.91 L (4.0-5.2) X10^6/uL Hgb 14.0 12.0 (12.0-16.0) g/dL Hct 42.1 36.0 (36-46) % MCV 92.7 92.1 (80-100) fL MCH 30.8 30.6 (26-34) PG MCHC 33.2 33.2 (30-36) % RDW 13.3 13.4 (11.6-14.8) % Plt Count 360 285 (150-400) X10^3/uL Neut % (Auto) 78.1 H 59.7 (50-75) % Lymph % (Auto) 15.5 L 30.6 (25-40) % [place] % (Auto) 5.7 7.9 (3-14) % Eos % (Auto) 0.4 L 1.1 L (2-4) % Baso % (Auto) 0.3 0.7 (0-2) % Neut # (Auto) 49000 H 6700 (6725-9419) /uL Lymph # (Auto) 2300 3500 (6722-6678) /uL [place] # (Auto) 800 900 (0-900) /uL Eos # (Auto) 100 100 (0-450) /uL Baso # (Auto) 0 100 (0-100) /uL Sodium 137 136 L (137-145) mmol/L Potassium 3.9 3.8 (3.4-5.1) mmol/L Chloride 101 105 (98-107) mmol/L Carbon Dioxide 28 27 (22-32) mmol/L BUN 5 L 3 L (7-17) mg/dL Creatinine 0.56 0.47 L (0.52-1.04) mg/dL Estimated GFR > 60 > 60 (>60) mL/min BUN/Creatinine Ratio 8.9 6.4 (6-22) Glucose 99 92 (70-100) mg/dL Lactate 1.2 (0.7-2.1) mmol/L Calcium 9.3 8.5 (8.4-10.2) mg/dL Total Bilirubin 4.0 H 3.1 H (0.2-1.3) mg/dL AST 633 H 423 H (14-36) IU/L ALT 1110 H 908 H (<35) IU/L Alkaline Phosphatase 185 H D 154 H (38-126) U/L Total Protein 8.0 6.5 (6.3-8.2) g/dL Albumin 4.3 3.4 L (3.5-5.0) g/dL Globulin 3.7 3.1 (1.7-4.1) g/dL Albumin/Globulin Ratio 1.2 1.1 (1.0-2.8) Lipase 128 (23-300) U/L Procalcitonin 0.031 (<0.5) ng/mL Urine Color Lisa Urine Appearance Clear Urine pH 8.0 (4.5-8.0) Ur Specific [place] 1.010 (1.000-1.035) Urine Protein TNP Urine Glucose (UA) TNP Urine Ketones TNP Urine Occult Blood TNP Urine Nitrate TNP Urine Bilirubin TNP Urine Urobilinogen TNP Ur Leukocyte Esterase TNP Urine RBC 0-1/hpf (0-5/HPF) Urine WBC 5-10/hpf H (0-5/HPF) Ur Squamous Epith Cells 0-1 /hpf (0-5/HPF) Ur Transition Epith Cell 0-1/hpf (0-5/HPF) Urine Bacteria Moderate (10-30) H (None) Ur Culture Indicated? Specimen cultured Vol Urine Centrifuged 10ml (spun) Point of care testing: Point of Care Testing Test Results Negative Imaging Data US - abdomen: Radiologist's Impression: PROCEDURE: US ABDOMEN LIMITED INDICATIONS: INCREASING ABDOMINAL PAIN. GALLSTONES. TECHNIQUE: Real-time focused scanning was performed of the abdomen, with image documentation. COMPARISON: [facility], US, US ABDOMEN LIMITED, 11/16/2023, 2:25. FINDINGS: Gallbladder is distended and proximal portion contains sludge and several mobile stones. The wall remains normal thickness at 1.7 mm. There is no pericholecystic fluid. Sonographic Stanton sign was not able to be assessed due to pain medication. There is intra hepatic biliary dilatation and the extrahepatic common duct is dilated up to 10 mm. The visible portions of the liver, right kidney, and proximal pancreas are normal. No free fluid in the right upper quadrant. IMPRESSION: Cholelithiasis. Interval development of intrahepatic and common bile duct dilatation. Distal common duct obstruction cannot be excluded. Dictated by: Ling Saucedo M.D. on 11/23/2023 at 20:14 MDM Narrative Medical decision making narrative: MDM CC: Yellowing skin right upper quadrant pain Complicating co-morbidities: Known cholelithiasis, also current UTI Data collected from: Patient and mother Medical records reviewed: Previous ED visit and surgery visit reviewed Differential considered: Choledocholithiasis acute cholecystitis cholangitis Exam documented above, pertinent findings include: Patient appears to feel uncomfortable. She is dry mucous membranes on exam she is tender in right upper quadrant and epigastric region, she definitely has some jaundice color and icterus noted Lab Test results independently reviewed as above. Pertinent findings: WBC 14.6 hemoglobin stable Bilirubin 4.0, AST 633, ALT 1110, alk-phos 185, lipase 128 Lactate 1.2 Independently reviewed EKG as above Imaging studies independently reviewed: Ultrasound shows cholelithiasis with intrahepatic ductal dilatation common bile duct measures 10 mm no pericholecystic fluid or sonographic sign Consultations: 2039 Dr. iKng, recommend transferring for ERCP 2129 Dr. Romeo NELSON had [place] unsure of anesthesia capabilities agrees that patient does not need an emergent surgery tonight and can wait but he has not sure what anesthesia is tomorrow 23:12 Dr. Mason, at , hospitalist updated patient's symptoms test results kindly accepts patient no need to talk to GI prior to transfer Treatments: IV fluids, zosyn toradol, Rocephin Pyridium Re-evaluations: Patient's abdominal pain has improved however she is having white discomfort with urination. Her urine does have bacteria in it. She has given a dose of Rocephin hit Pyridium to help with the burning. She was given some Ativan to help her sleep Discussion: Patient 38-year-old female presenting today with known cholelithiasis and gallbladder sludge presents today with increasing jaundice and pain. She is found to have significantly more elevated bilirubin and liver enzymes concerning for choledocholithiasis. Ultrasound confirms dilated common bile duct at 9 mm She is afebrile however blood pressure is low when she appears dry. IV fluids are given mildly low blood pressure however she is awake alert and responsive. She is normal lactate no concern for severe sepsis. Labs this morning improved bili AST ALT went down still quite elevated. Discharge Plan Departure Patient Disposition: [facility] Clinical Impression: Choledocholithiasis, UTI (urinary tract infection) Prescriptions: No Action dextroamphetamine-amphetamine [Adderall XR] 20 mg capsule,extended release 24hr 20 mg PO DAILY Qty: 30 0RF ondansetron 4 mg tablet,disintegrating 4 mg PO Q6H PRN (Reason: nausea and vomiting) Qty: 14 0RF hydrocodone-acetaminophen 5-325 mg tablet 1 tab PO Q6H PRN (Reason: pain) Qty: 10 0RF Referrals: Sunil Gibbons MD [Primary Care Provider] -
[2023-11-23 18:49] LABS: Alanine Aminotransferase 1110 IU/L (<35)
--- NOTE | 2023-11-23 18:53 | DI.US.S_ITS ---
PROCEDURE: US ABDOMEN LIMITED INDICATIONS: INCREASING ABDOMINAL PAIN. GALLSTONES. TECHNIQUE: Real-time focused scanning was performed of the abdomen, with image documentation. COMPARISON: [facility], , US ABDOMEN LIMITED, 11/16/2023, 2:25. FINDINGS: Gallbladder is distended and proximal portion contains sludge and several mobile stones. The wall remains normal thickness at 1.7 mm. There is no pericholecystic fluid. Sonographic Stanton sign was not able to be assessed due to pain medication. There is intra hepatic biliary dilatation and the extrahepatic common duct is dilated up to 10 mm. The visible portions of the liver, right kidney, and proximal pancreas are normal. No free fluid in the right upper quadrant. IMPRESSION: Cholelithiasis. Interval development of intrahepatic and common bile duct dilatation. Distal common duct obstruction cannot be excluded. Dictated by: Ling Saucedo M.D. on 11/23/2023 at 20:14 Approved by: Ling Saucedo M.D. on 11/23/2023 at 20:17
[2023-11-23 18:56] LABS: Lactate (Lactic Acid) 1.2 mmol/L (0.7-2.1)
[2023-11-23] MEDS: SODIUM CHLORIDE 0.9% 1,000 ML 1000 ML IV (19:03)
[2023-11-23] MEDS: PIPERACILLIN/TAZO 4.5 GM in SODIUM CHLORIDE 0.9% 100 ML IV (19:03)
[2023-11-23] MEDS: ONDANSETRON 4 MG/2 ML INJ IV (19:10)
[2023-11-23] MEDS: KETOROLAC 30 MG/ML VIAL 15 MG IV (19:10)
[2023-11-23 19:14] LABS: Procalcitonin 0.031 ng/mL (<0.5)
[2023-11-23 21:36] LABS: Appearance Urine UA CLEAR
[2023-11-23 21:41] LABS: Color Urine UA Amber
[2023-11-23 21:42] LABS: Urine Volume 10mL (spun)
[2023-11-23 21:43] LABS: Bacteria Urine Moderate (10-30); RBC Urine 0-1/HPF (0-5/HPF); Squamous Epithelial Cell Urine 0-1 /HPF (0-5/HPF); WBC Urine 5-10/HPF (0-5/HPF)
[2023-11-23 21:44] LABS: Culture Indicated Urine Specimen Cultured; Transitional Epi Cells Urine 0-1/HPF (0-5/HPF)
--- NOTE | 2023-11-23 22:18 | PC.NURSE ---
TECHNICAL SALES SUPPORT SPECIALIST note: Attempting to transfer patient. Contacted the following hospitals with the following responses. [facility]: 2054 Spoke with [place]. Currently no beds, patient is on waitlist. Sent over facesheet. [facility]: 2058 Spoke with Shahida. Images pushed, face sheet sent over, patient on waitlist. [place]: 2103 spoke with Papo. Facesheet and images sent over. Patient on waitlist. [facility]: 2117 Spoke with Mushtaq. Sent facesheet and pushed images over. [facility]: 2119 spoke with Chiqui. They have a bed. Patient was asked if she was willing to go down to [facility]. Patient said she would. Spoke to Dr. Faye, their GI doctor. Currently Dr. Faye doesn't want to have the patient come to them until later when then know the anesthesiologist is in house. [facility] said they'd hold the bed. 2139 Spoke to Tabatha at [facility]. She will help us find placement.
[2023-11-24] VITALS (15 sets, daily range): BP systolic 80–100; BP diastolic 50–69; PULSE 56–78; RESP 17–24; O2SAT 95–99
[2023-11-24] MEDS: PHENAZOPYRIDINE 100 MG TABLET 200 MG PO (00:34)
[2023-11-24] MEDS: cefTRIAXone 1,000 MG in SODIUM CHLORIDE 0.9% 100 ML 200 MG IV (00:35)
[2023-11-24] MEDS: LORazepam 2 MG/ML INJ 0.5 MG IV (00:35)
--- NOTE | 2023-11-24 00:51 | CM.MNRNOTE ---
pt medicated for rest and placed on a hospital bed, given a warm blanket and lights dimmed
--- NOTE | 2023-11-24 04:02 | PC.NURSE ---
am labs drawn and sent, pt informed of bed placement, and paperwork signed
[2023-11-24 04:04] LABS: Add Manual Diff / Slide Review NO; Basophils Absolute Auto 100 /uL (0-100); Basophils Percent Auto 0.7 % (0-2); Eosinophils Absolute Auto 100 /uL (0-450); Eosinophils Percent Auto 1.1 % (2-4); Lymphocytes Absolute Auto 3500 /uL (1100-4500); Lymphocytes Percent Auto 30.6 % (25-40); Mean Corpuscular HGB Conc 33.2 % (30-36); Mean Corpuscular Hemoglobin 30.6 PG (26-34); Mean Corpuscular Volume 92.1 fL (80-100); Monocytes Absolute Auto 900 /uL (0-900); Monocytes Percent Auto 7.9 % (3-14); Neutrophils Absolute Auto 6700 /uL (1500-7000); Neutrophils Percent Auto 59.7 % (50-75); Platelet Count 285 X10^3/uL (150-400); Red Blood Cell Count 3.91 X10^6/uL (4.0-5.2); Red Cell Distribution Width 13.4 % (11.6-14.8); White Blood Cell Count 11.3 X10^3/uL (4.5-11.0)
[2023-11-24 04:40] LABS: Albumin 3.4 g/dL (3.5-5.0); Albumin Globulin Ratio 1.1 (1.0-2.8); Alkaline Phosphatase 154 U/L (38-126); Aspartate Aminotransferase 423 IU/L (14-36); BUN Creatinine Ratio 6.4 (6-22); Bilirubin Total 3.1 mg/dL (0.2-1.3); Blood Urea Nitrogen 3 mg/dL (7-17); Calcium 8.5 mg/dL (8.4-10.2); Carbon Dioxide 27 mmol/L (22-32); Chloride 105 mmol/L (98-107); Estimated Glomerular Filt Rate > 60 mL/min (>60); Globulin 3.1 g/dL (1.7-4.1); Glucose 92 mg/dL (70-100); Potassium 3.8 mmol/L (3.4-5.1); Sodium 136 mmol/L (137-145); Total Protein 6.5 g/dL (6.3-8.2)
[2023-11-24 04:52] LABS: HEMOLYSIS 30 (0-50)
[2023-11-24 04:53] LABS: Alanine Aminotransferase 908 IU/L (<35)
== END 2023-11-24 06:19 | disposition short-term general hospital (02) ==
PROVIDERS: Emergency Provider Emergency Medicine; PCP Family Medicine
DX: K80.50 Calculus of bile duct without cholangitis or cholecystitis without obstruction (principal); N39.0 Urinary tract infection, site not specified
CPT/HCPCS: 36415; 76705; 80053; 81001; 81025; 83605; 83690; 84145; 85025; 87040; 87086; 96365; 96367; 96375; 99284; J0696; J1885; J2060; J2405; J2543

== ENCOUNTER → 2023-12-02 07:41 | Outpatient (CLI) | payer OTHER, SELFPAY ==
[2023-12-02 08:17] LABS: Add Manual Diff / Slide Review NO; Basophils Absolute Auto 0 /uL (0-100); Basophils Percent Auto 0.3 % (0-2); Eosinophils Absolute Auto 100 /uL (0-450); Eosinophils Percent Auto 0.9 % (2-4); Hematocrit 38.6 % (36-46); Hemoglobin 12.8 g/dL (12.0-16.0); Lymphocytes Absolute Auto 3300 /uL (1100-4500); Lymphocytes Percent Auto 24.2 % (25-40); Mean Corpuscular HGB Conc 33.1 % (30-36); Mean Corpuscular Hemoglobin 30.9 PG (26-34); Mean Corpuscular Volume 93.4 fL (80-100); Monocytes Absolute Auto 700 /uL (0-900); Monocytes Percent Auto 5.1 % (3-14); Neutrophils Absolute Auto 9500 /uL (1500-7000); Neutrophils Percent Auto 69.5 % (50-75); Platelet Count 362 X10^3/uL (150-400); Red Blood Cell Count 4.13 X10^6/uL (4.0-5.2); Red Cell Distribution Width 13.9 % (11.6-14.8); White Blood Cell Count 13.7 X10^3/uL (4.5-11.0)
[2023-12-02 09:11] LABS: Alanine Aminotransferase 247 IU/L (<35); Albumin Globulin Ratio 1.3 (1.0-2.8); Alkaline Phosphatase 151 U/L (38-126); Aspartate Aminotransferase 44 IU/L (14-36); BUN Creatinine Ratio 16.7 (6-22); Bilirubin Total 0.9 mg/dL (0.2-1.3); Blood Urea Nitrogen 7 mg/dL (7-17); Calcium 9.5 mg/dL (8.4-10.2); Carbon Dioxide 21 mmol/L (22-32); Chloride 106 mmol/L (98-107); Estimated Glomerular Filt Rate > 60 mL/min (>60); Glucose 89 mg/dL (70-100); HEMOLYSIS < 15 (0-50); Potassium 3.9 mmol/L (3.4-5.1); Sodium 138 mmol/L (137-145)
[2023-12-02 15:11] LABS: Lipase 295 U/L (23-300)
== END ==
PROVIDERS: PCP Family Medicine; Referring Provider Family Medicine; Visit Provider Family Medicine
DX: K80.50 Calculus of bile duct without cholangitis or cholecystitis without obstruction (principal); K80.20 Calculus of gallbladder without cholecystitis without obstruction
CPT/HCPCS: 36415; 80053; 83690; 85025

== ENCOUNTER 2024-06-13 15:59 | Emergency (ER) | payer OTHER, SELFPAY ==
[2024-06-13 16:01] VITALS: BP 128/72; PULSE 101; RESP 17; TEMP 36.3; O2SAT 98; BMI 27.6
--- NOTE | 2024-06-13 16:06 | DI.US.S_ITS ---
PROCEDURE: US OB <= 14 WEEKS FETUS INDICATIONS: 6wks preg, spotting OUTSIDE/PRIOR DATING DATA: Last menstrual period (LMP): 05/02/2024 LMP-based estimated date of delivery (DAVIS): 04/09/2024 First dating scan (date and location): Today Estimated date of delivery (DAVIS) from first dating scan: 5 weeks 5 days TECHNIQUE: Real-time scanning was performed of the fetus and maternal pelvic organs, with image documentation. Endovaginal scanning was also performed to better visualize the fetus and maternal ovaries. COMPARISON: None. FINDINGS: Embryo: pole not identified, small gestational sac present with yolk sac. Mean gestational sac diameter measures 0.9 cm consistent with 5 weeks 5 days Heart rate: Not present Maternal organs: Small right corpus luteal cyst. Left ovary is unremarkable. IMPRESSION: Early intrauterine of unknown viability dating at 5 weeks 5 days. We strive to produce accurate, complete, and clear reports of imaging services. To assist us in improving patient care, this report was composed using standard report templates and voice recognition software. Therefore, it may contain abnormal punctuation, insertions and/or omissions. Occasional wrong-word or sound-alike substitutions may occur. Though we review the report and make efforts to correct it, we do recommend that the report be read carefully in proper context to recognize any text inaccuracies. Dictated by: Mike Aquino M.D. on 06/13/2024 at 16:15 Approved by: Mike Aquino M.D. on 06/13/2024 at 16:18
[2024-06-13 16:40] LABS: Add Manual Diff / Slide Review NO; Basophils Absolute Auto 100 /uL (0-100); Basophils Percent Auto 0.8 % (0-2); Eosinophils Absolute Auto 200 /uL (0-450); Hematocrit 39.1 % (36-46); Lymphocytes Absolute Auto 3500 /uL (1100-4500); Lymphocytes Percent Auto 21.2 % (25-40); Mean Corpuscular HGB Conc 33.3 % (30-36); Mean Corpuscular Hemoglobin 30.6 PG (26-34); Mean Corpuscular Volume 91.7 fL (80-100); Monocytes Absolute Auto 900 /uL (0-900); Monocytes Percent Auto 5.4 % (3-14); Neutrophils Absolute Auto 11900 /uL (1500-7000); Neutrophils Percent Auto 71.6 % (50-75); Platelet Count 327 X10^3/uL (150-400); Red Blood Cell Count 4.26 X10^6/uL (4.0-5.2); Red Cell Distribution Width 13.8 % (11.6-14.8); White Blood Cell Count 16.6 X10^3/uL (4.5-11.0)
[2024-06-13 16:46] VITALS: BP 110/68; PULSE 94; RESP 16; O2SAT 97
[2024-06-13 16:51] LABS: Alanine Aminotransferase 162 IU/L (<35); Albumin 4.6 g/dL (3.5-5.0); Albumin Globulin Ratio 1.6 (1.0-2.8); Alkaline Phosphatase 66 U/L (38-126); Aspartate Aminotransferase 72 IU/L (14-36); BUN Creatinine Ratio 14.9 (6-22); Bacteria Urine Few (2-10); Bilirubin Total 0.3 mg/dL (0.2-1.3); Blood Urea Nitrogen 7 mg/dL (7-17); Calcium 9.2 mg/dL (8.4-10.2); Carbon Dioxide 22 mmol/L (22-32); Chloride 106 mmol/L (98-107); Culture Indicated Urine Cult Not Indicated; Estimated Glomerular Filt Rate > 60 mL/min (>60); Globulin 2.9 g/dL (1.7-4.1); Glucose 107 mg/dL (70-99); HEMOLYSIS < 15 (0-50); Potassium 3.7 mmol/L (3.4-5.1); RBC Urine 0-1/HPF (0-5/HPF); Sodium 138 mmol/L (137-145); Squamous Epithelial Cell Urine 0-1 /HPF (0-5/HPF); Total Protein 7.5 g/dL (6.3-8.2); Urine Volume 10mL (spun); WBC Urine None Seen (0-5/HPF)
[2024-06-13 17:00] VITALS: BP 108/66; PULSE 90; RESP 20; O2SAT 98
[2024-06-13 17:07] LABS: HCG Quantitative /Beta subunit 9098.5 mIU/mL
[2024-06-13 17:30] VITALS: BP 101/62; PULSE 90; RESP 16; O2SAT 98
[2024-06-13 18:00] VITALS: BP 91/56; PULSE 91; O2SAT 99
[2024-06-13 18:30] VITALS: BP 112/75; PULSE 93; RESP 16; O2SAT 98
--- NOTE | 2024-06-13 18:38 | ED.PREGNANCY ---
HPI - General Chief complaint: Vaginal Bleeding Stated complaint: 6wks Preg; Spotting/Cramping Time Seen by Provider: 06/13/24 18:21 Source: patient Mode of arrival: Ambulatory History of Present Illness HPI Narrative: 38-year-old female history of ADHD PCOS presents with vaginal bleeding described as spotting today in right suprapubic groin pain but no nausea vomiting diarrhea constipation back pain or passing any clots. Her last menstrual period was May 02 she is currently on metformin and bupropion and a multivitamin at this point. She has never been and has no living children at this point. Former smoker ever had any miscarriages in the past. Other than what is stated 14 point review of system is negative. Related Data Home Medications Medication Instructions Recorded Confirmed carica papaya (Papaya Enzyme 1 tab PO TID PRN 06/02/24 06/02/24 tablet) docosahexaenoic acid 200 mg mg PO 06/02/24 06/02/24 capsule ( DHA) vitamin-ferrous sulfate tab PO 06/02/24 06/02/24 27 mg iron-folic acid 0.8 mg tablet Previous Rx's Medication Instructions Recorded bupropion HCl 300 mg 24 hr tablet, 300 mg PO QAM #90 tabs 04/27/24 extended release metformin 500 mg tablet 500 mg PO .COMPLEX #135 tabs 04/27/24 Allergies Allergy/AdvReac Type Severity Reaction Status Date / Time No Known Drug Allergies Allergy Verified 06/13/24 16:01 Review of Systems Review of Systems ROS Unobtainable: All systems reviewed & are unremarkable except as noted in HPI and below Exam Narrative Exam Narrative: GENERAL: [38] year old patient appears stated age. Well-developed patient, in mild distress. HEAD: Atraumatic. Normocephalic. EYES: Pupils equal round and reactive. Extraocular motions intact. No scleral icterus. No injection or drainage. NECK: Trachea midline. Non tender GASTROINTESTINAL: Abdomen soft, james ttp RLQ but no r/r/g nondistended. EXTREMITIES: No edema or joint tenderness. BACK: Nontender without deformity or crepitance. No flank tenderness. NEURO: AOx3. SKIN: No rash or erythema of visible areas Initial Vital Signs Initial Vital Signs: Vital Signs Temperature 97.4 F L 06/13/24 16:01 Pulse Rate 101 H 06/13/24 16:01 Respiratory Rate 17 06/13/24 16:01 Blood Pressure 128/72 06/13/24 16:01 Pulse Oximetry 98 06/13/24 16:01 Oxygen Delivery Method Room Air 06/13/24 16:01 Course Orders Ordered: ED Orders 06/13/24 16:06 US OB <= 14 weeks fetus Stat 06/13/24 16:14 Complete Blood Count AUTO DIFF Stat Comprehensive Metabolic Panel Stat HCG Quantitative /Beta subunit Stat Type and Screen Stat Urine Microscopic Stat Vital Signs Vital signs: Vital Signs - 8 hr 06/13/24 16:01 06/13/24 16:46 06/13/24 17:00 Temperature 97.4 F L Pulse Rate 101 H 94 H 90 Respiratory Rate 17 16 Blood Pressure 128/72 110/68 Pulse Oximetry 98 97 98 Oxygen Delivery Method Room Air 06/13/24 17:00 06/13/24 17:30 06/13/24 17:30 Temperature Pulse Rate 90 Respiratory Rate 20 16 Blood Pressure 108/66 101/62 Pulse Oximetry 98 Oxygen Delivery Method MDM - OB/Uterine Contractions Lab Data 06/13/24 16:14 06/13/24 16:14 Labs: Lab Results 06/13/24 Range/Units 16:14 WBC 16.6 H (4.5-11.0) X10^3/uL RBC 4.26 (4.0-5.2) X10^6/uL Hgb 13.0 (12.0-16.0) g/dL Hct 39.1 (36-46) % MCV 91.7 (80-100) fL MCH 30.6 (26-34) PG MCHC 33.3 (30-36) % RDW 13.8 (11.6-14.8) % Plt Count 327 (150-400) X10^3/uL Neut % (Auto) 71.6 (50-75) % Lymph % (Auto) 21.2 L (25-40) % [place] % (Auto) 5.4 (3-14) % Eos % (Auto) 1.0 L (2-4) % Baso % (Auto) 0.8 (0-2) % Neut # (Auto) 94471 H (4116-7053) /uL Lymph # (Auto) 3500 (4559-7576) /uL [place] # (Auto) 900 (0-900) /uL Eos # (Auto) 200 (0-450) /uL Baso # (Auto) 100 (0-100) /uL Sodium 138 (137-145) mmol/L Potassium 3.7 (3.4-5.1) mmol/L Chloride 106 (98-107) mmol/L Carbon Dioxide 22 (22-32) mmol/L BUN 7 (7-17) mg/dL Creatinine 0.47 L (0.52-1.04) mg/dL Estimated GFR > 60 (>60) mL/min BUN/Creatinine Ratio 14.9 (6-22) Glucose 107 H (70-99) mg/dL Calcium 9.2 (8.4-10.2) mg/dL Total Bilirubin 0.3 (0.2-1.3) mg/dL AST 72 H (14-36) IU/L ALT 162 H (<35) IU/L Alkaline Phosphatase 66 (38-126) U/L Total Protein 7.5 (6.3-8.2) g/dL Albumin 4.6 (3.5-5.0) g/dL Globulin 2.9 (1.7-4.1) g/dL Albumin/Globulin Ratio 1.6 (1.0-2.8) HCG, Quant 9098.5 mIU/mL Urine RBC 0-1/hpf (0-5/HPF) Urine WBC None seen (0-5/HPF) Ur Squamous Epith Cells 0-1 /hpf (0-5/HPF) Urine Bacteria Few (2-10) H (None) Ur Culture Indicated? Cult not indicated Vol Urine Centrifuged 10ml (spun) Blood Type O Positive Antibody Screen Negative Point of Care Testing Test Results Positive Urine Dip Bedside Urine Glucose Negative Bedside Urine Bilirubin - Negative Bedside Urine Ketone - Negative Urine Specific [place] 1.01 Bedside Urine Occult Blood + Bedside Urine pH 7.5 Bedside Urine Protein - Negative Bedside Urine Urobilinogen - Negative Bedside Urine Nitrite - Negative Bedside Urine Leukocytes - Negative Esterase Imaging Data US - abdomen: Radiologist's Impression: [address] [address] Ultrasound Report Signed Patient: Eli Jay MR#: [id number] : 1985 Acct:[id number] Age/Sex: 38 / F Date of Service: 06/13/24 Loc: ED Accession Number: [id number] Procedure: US OB <= 14 weeks fetus Ordering Provider: Angelina Valverde D.O. PROCEDURE: US OB <= 14 WEEKS FETUS INDICATIONS: 6wks preg, spotting OUTSIDE/PRIOR DATING DATA: Last menstrual period (LMP): 05/02/2024 LMP-based estimated date of delivery (DAVIS): 04/09/2024 First dating scan (date and location): Today Estimated date of delivery (DAVIS) from first dating scan: 5 weeks 5 days TECHNIQUE: Real-time scanning was performed of the fetus and maternal pelvic organs, with image documentation. Endovaginal scanning was also performed to better visualize the fetus and maternal ovaries. COMPARISON: None. FINDINGS: Embryo: pole not identified, small gestational sac present with yolk sac. Mean gestational sac diameter measures 0.9 cm consistent with 5 weeks 5 days Heart rate: Not present Maternal organs: Small right corpus luteal cyst. Left ovary is unremarkable. IMPRESSION: Early intrauterine of unknown viability dating at 5 weeks 5 days. We strive to produce accurate, complete, and clear reports of imaging services. To assist us in improving patient care, this report was composed using standard report templates and voice recognition software. Therefore, it may contain abnormal punctuation, insertions and/or omissions. Occasional wrong-word or sound-alike substitutions may occur. Though we review the report and make efforts to correct it, we do recommend that the report be read carefully in proper context to recognize any text inaccuracies. MDM Narrative Medical decision making narrative: All lab work, vital signs, nurse triage note, medication list, and all imaging modalities and previous ER visits reviewed. Ultrasound shows early intrauterine of unknown viability dating at 5 weeks 5 days. Beta quant 9098.5 discussed with patient signs and symptoms to be re-evaluated including worsening abdominal pain passing more clots and also to follow up with PCP in 48-72 hours for repeat quant. Differential diagnosis threatened versus viable intrauterine . Discharge Plan Departure Patient Disposition: Home Clinical Impression: Qualifiers: Weeks of gestation: less than 8 weeks Qualified Code(s): Z3A.01 - Less than 8 weeks gestation of Instructions: Early Bleeding Activity Restrictions/Additional Instructions: Return with new or worsening symptoms. Please follow up with PCP for repeat beta quant in 48-72 hours Prescriptions: No Action vit-ferrous sulfat-FA 27 mg iron- 0.8 mg tablet PO DHA 200 mg capsule PO Papaya Enzyme Tablet 1 tab PO TID PRN Rx Instructions: administer with meals metformin 500 mg tablet 500 mg PO .COMPLEX Qty: 135 0RF Rx Instructions: t1 tab po daily for 1 week, then increase to t1 tab po bid thereafter bupropion HCl 300 mg tablet extended release 24 hr 300 mg PO QAM Qty: 90 1RF Rx Instructions: Dose increased. Referrals: Sunil Gibbons MD [Primary Care Provider] - Stand Alone Forms: Patient Portal/API/Survey
== END 2024-06-13 18:52 | disposition home or self-care (01) ==
PROVIDERS: Emergency Medicine; Emergency Provider Family Medicine; PCP Family Medicine
DX: O20.9 Hemorrhage in early pregnancy, unspecified (principal); Z3A.01 Less than 8 weeks gestation of pregnancy
CPT/HCPCS: 76801; 76817; 80053; 81003; 81015; 81025; 84702; 85025; 86850; 86900; 86901; 99282; 99283

== ENCOUNTER → 2024-06-15 14:28 | Outpatient (CLI) | payer OTHER, SELFPAY ==
[2024-06-15 16:14] LABS: HCG Quantitative /Beta subunit 12057 mIU/mL
== END ==
PROVIDERS: PCP Family Medicine; Referring Provider Obstetrics & Gynecology; Visit Provider Obstetrics & Gynecology
DX: O20.9 Hemorrhage in early pregnancy, unspecified (principal)
CPT/HCPCS: 36415; 84702

== ENCOUNTER → 2024-06-22 12:11 | Outpatient (CLI) | payer OTHER, SELFPAY ==
[2024-06-22 15:09] LABS: Urine N gonorrhoeae NOT DETECTED
[2024-06-22 15:16] LABS: Urine Chlamydia NOT DETECTED
== END ==
LOC: LAB 12:22
PROVIDERS: PCP Family Medicine; Visit Provider Obstetrics & Gynecology
DX: Z34.80 Encounter for supervision of other normal pregnancy, unspecified trimester (principal)
CPT/HCPCS: 87491; 87591

== ENCOUNTER → 2024-06-22 12:32 | Outpatient (CLI) | payer OTHER, SELFPAY ==
[2024-06-22 13:18] LABS: Add Manual Diff / Slide Review NO; Basophils Absolute Auto 100 /uL (0-100); Basophils Percent Auto 0.8 % (0-2); Eosinophils Absolute Auto 100 /uL (0-450); Eosinophils Percent Auto 0.4 % (2-4); Hematocrit 40.3 % (36-46); Hemoglobin 13.5 g/dL (12.0-16.0); Lymphocytes Absolute Auto 3300 /uL (1100-4500); Mean Corpuscular HGB Conc 33.6 % (30-36); Mean Corpuscular Volume 92.3 fL (80-100); Monocytes Absolute Auto 800 /uL (0-900); Monocytes Percent Auto 4.6 % (3-14); Neutrophils Absolute Auto 13100 /uL (1500-7000); Neutrophils Percent Auto 75.2 % (50-75); Platelet Count 308 X10^3/uL (150-400); Red Blood Cell Count 4.36 X10^6/uL (4.0-5.2); Red Cell Distribution Width 13.6 % (11.6-14.8); White Blood Cell Count 17.5 X10^3/uL (4.5-11.0)
[2024-06-22 13:27] LABS: Hemoglobin A1C% w Est Avg Glu 4.6 % (4.0-6.0)
[2024-06-22 13:31] LABS: Erythrocyte Sedimentation Rate 6 MM/HR (0-20)
[2024-06-22 13:40] LABS: Alanine Aminotransferase 93 IU/L (<35); Albumin 4.9 g/dL (3.5-5.0); Albumin Globulin Ratio 1.6 (1.0-2.8); Alkaline Phosphatase 77 U/L (38-126); Aspartate Aminotransferase 46 IU/L (14-36); Bilirubin Total 0.4 mg/dL (0.2-1.3); Blood Urea Nitrogen 9 mg/dL (7-17); C-Reactive Protein Quant < 0.5 mg/dL (<1.0); Calcium 9.6 mg/dL (8.4-10.2); Carbon Dioxide 21 mmol/L (22-32); Chloride 104 mmol/L (98-107); Estimated Glomerular Filt Rate > 60 mL/min (>60); Glucose 78 mg/dL (70-99); HEMOLYSIS < 15 (0-50); Potassium 4.1 mmol/L (3.4-5.1); Sodium 137 mmol/L (137-145); Total Protein 7.9 g/dL (6.3-8.2)
[2024-06-22 14:46] LABS: Hepatitis B Surface Antigen NEGATIVE s/c (NEGATIVE); Rubella Antibody IgG 27.3 IU/mL (>15)
[2024-06-22 15:01] LABS: Hep C Virus Ab w/Reflex Quant NEGATIVE s/c (NEGATIVE)
[2024-06-22 15:02] LABS: HIV 1 & 2 Ab/Ag 4th Gen Combo NEGATIVE (NEGATIVE)
[2024-06-23 01:11] LABS: HBsAg Screen Negative (Negative); Hepatitis A Antibody IgM Negative (Negative); Hepatitis B Core Antibody IgM Negative (Negative); Hepatitis C Antibody Non Reactive (Non Reactive)
[2024-06-23 04:40] LABS: RPR Screen Non Reactive (Non Reactive)
[2024-06-23 09:09] LABS: Varicella IgG Antibody Reactive (Non Reactive)
[2024-06-24 14:09] LABS: Anti Mitochondrial ABY IGG <20.0 Units (0.0-20.0); Smooth Muscle Antibody 4 Units (0-19)
[2024-06-25 00:12] LABS: ANA Screen, IFA Negative (.)
== END ==
PROVIDERS: PCP Family Medicine; Referring Provider Family Medicine; Visit Provider Obstetrics & Gynecology
DX: Z34.80 Encounter for supervision of other normal pregnancy, unspecified trimester (principal); R21 Rash and other nonspecific skin eruption; F98.8 Other specified behavioral and emotional disorders with onset usually occurring in childhood and adolescence; K80.20 Calculus of gallbladder without cholecystitis without obstruction; R74.8 Abnormal levels of other serum enzymes; R53.83 Other fatigue; E28.2 Polycystic ovarian syndrome
CPT/HCPCS: 36415; 80053; 80055; 80074; 83036; 83516; 85651; 86015; 86038; 86140; 86787; 86803; 86850; 86900; 86901; 87086; 87389; 87491; 87591

== ENCOUNTER → 2024-12-02 06:53 | Outpatient (CLI) | payer OTHER, SELFPAY ==
[2024-12-02 07:55] LABS: Add Manual Diff / Slide Review NO; Hematocrit 40.3 % (36-46); Hemoglobin 13.7 g/dL (12.0-16.0); Lymphocytes Absolute Auto 3600 /uL (1100-4500); Mean Corpuscular HGB Conc 34.0 % (30-36); Mean Corpuscular Hemoglobin 30.7 PG (26-34); Mean Corpuscular Volume 90.4 fL (80-100); Platelet Count 324 X10^3/uL (150-400)
[2024-12-02 08:09] LABS: Alanine Aminotransferase 47 IU/L (<35); Albumin 4.7 g/dL (3.5-5.0); Albumin Globulin Ratio 1.5 (1.0-2.8); Alkaline Phosphatase 59 U/L (38-126); Blood Urea Nitrogen 8 mg/dL (7-17); Calcium 9.6 mg/dL (8.4-10.2); Carbon Dioxide 24 mmol/L (22-32); Chloride 102 mmol/L (98-107); Estimated Glomerular Filt Rate > 60 mL/min (>60); Globulin 3.1 g/dL (1.7-4.1); Glucose 83 mg/dL (70-99); HEMOLYSIS < 15 (0-50); Potassium 4.0 mmol/L (3.4-5.1); Sodium 137 mmol/L (137-145); Total Protein 7.8 g/dL (6.3-8.2)
[2024-12-02 08:26] LABS: Free T4, Direct Thyroxine 0.78 ng/dL (0.78-2.19); Progesterone, Total 14.80 ng/mL
[2024-12-02 08:40] LABS: Thyroid Stimulating Hormone 1.59 uIU/mL (0.47-4.68)
== END ==
PROVIDERS: PCP Family Medicine; Referring Provider Obstetrics & Gynecology; Visit Provider Obstetrics & Gynecology
DX: E28.2 Polycystic ovarian syndrome (principal)
CPT/HCPCS: 36415; 80053; 84144; 84439; 84443; 85025

== ENCOUNTER → 2025-01-13 16:19 | Outpatient (CLI) | payer OTHER, SELFPAY ==
--- NOTE | 2025-01-13 16:20 | DI.US.S_ITS ---
PROCEDURE: US PELVIC COMPLETE INDICATIONS: infertility, light menses- evaluate uterine lining, follicle TECHNIQUE: Real-time scanning was performed of the pelvic organs, with image documentation. Additional endovaginal scanning was necessary due to incomplete visualization of the adnexal and endometrial structures by transabdominal scanning. COMPARISON: None. FINDINGS: Uterus: Uterus is anteverted and normal in size at 6.4 x 3.0 x 4.8 cm. The myometrium is homogeneous. The endometrium measures 3 mm combined thickness. There is 1 mm fluid within the endometrium. Ovaries: The right ovary measures 4.5 x 2.5 x 2.7 cm, with a calculated ovarian volume of 11.8 cc. The left ovary measures 2.2 x 2.3 x 1.9 cm, with a calculated ovarian volume of 5.3 cc. The ovaries have a normal sonographic appearance. Right ovary demonstrates 12 follicles. No adnexal masses are seen. Other: No pathologic free abdominal or pelvic fluid. IMPRESSION: Endometrium is normal in thickness and contains trace fluid. Right ovary demonstrates 12 follicles, correlate for signs of polycystic ovarian syndrome. We strive to produce accurate, complete, and clear reports of imaging services. To assist us in improving patient care, this report was composed using standard report templates and voice recognition software. Therefore, it may contain abnormal punctuation, insertions and/or omissions. Occasional wrong-word or sound-alike substitutions may occur. Though we review the report and make efforts to correct it, we do recommend that the report be read carefully in proper context to recognize any text inaccuracies. Dictated by: Jae Ray M.D. on 01/14/2025 at 10:18 Approved by: Jae Ray M.D. on 01/14/2025 at 10:19
== END ==
LOC: US 16:20
PROVIDERS: PCP Family Medicine; Referring Provider Obstetrics & Gynecology; Visit Provider Obstetrics & Gynecology
DX: N92.6 Irregular menstruation, unspecified (principal)
CPT/HCPCS: 76830; 76856; 93976

== ENCOUNTER → 2025-01-20 06:58 | Outpatient (CLI) | payer OTHER, SELFPAY ==
[2025-01-20 08:25] LABS: Follicle Stimulating Hormone 3.76 mIU/mL
[2025-01-20 08:41] LABS: Estradiol, Total 130.9 pg/mL
== END ==
PROVIDERS: PCP Family Medicine; Referring Provider Obstetrics & Gynecology; Visit Provider Obstetrics & Gynecology
DX: N92.6 Irregular menstruation, unspecified (principal)
CPT/HCPCS: 36415; 82670; 83001; 84146